=== PATIENT | female | born 1985 ===

== ENCOUNTER 2017-07-21 01:29 | Emergency (ER) | payer OTHER ==
[2017-07-21 02:06] VITALS: BP 98/64; PULSE 80; RESP 18; TEMP 98.6; O2SAT 100
--- NOTE | 2017-07-21 03:02 | ED PDOC ---
HPI: Back Time Seen by Provider: 07/21/17 02:14 Chief Complaint (Nursing): Back Pain Chief Complaint (Provider): back pain, ankle pain History Per: Patient History/Exam Limitations: no limitations Onset/Duration Of Symptoms: Days, Waxing/Waning Current Symptoms Are (Timing): Still Present Quality Of Discomfort: "Pain" Exacerbating Factor(s): Turning, Movement, Sitting Additional History Per: Patient Additional Complaint(s): 32 y/o female presents with intermittent low back pain, right leg pain x years, worsening the last 2 weeks. Patient states she had 2 surgeries for ruptured tendon in 2013; since then the area gets swollen and painful often. Patient also notes since then to have intermittent right and left-sided low back pain, with occasional radiation down right leg. Patient admits to not bearing weight properly on right foot due to pain and is unsure if back problems are a result of that. Patient notes pain to be worse with weight bearing, turning, sitting; has had improvement with muscle relaxants in past but wants to find out why she keeps getting this pain. Denies new injury, fever, numbness/weakness lower extremities, limitation of movement, bowel/bladder incontinence, urinary symptoms. Past Medical History Reviewed: Historical Data, Nursing Documentation, Vital Signs Vital Signs: Last Vital Signs Temp 98.6 F 07/21/17 01:56 Pulse 80 07/21/17 01:56 Resp 18 07/21/17 01:56 BP 98/64 L 07/21/17 01:56 Pulse Ox 100 07/21/17 01:56 - Medical History PMH: No Chronic Diseases - Surgical History Other surgeries: right ankle surgery. left eye surgery - Family History Family History: States: No Known Family Hx - Home Medications Home Medications: Ambulatory Orders Medication Instructions Recorded Cyclobenzaprine [Cyclobenzaprine 10 mg PO BID PRN #14 tab 07/21/17 HCl] Ibuprofen [Motrin Tab] 1 tab PO Q6 PRN #20 tab 07/21/17 - Allergies Allergies/Adverse Reactions: Allergies Allergy/AdvReac Type Severity Reaction Status Date / Time No Known Allergies Allergy Verified 07/21/17 01:56 Review of Systems ROS Statement: Except As Marked, All Systems Reviewed And Found Negative Musculoskeletal: Positive for: Back Pain, Leg Pain, Foot Pain Physical Exam - Reviewed Nursing Documentation Reviewed: Yes Vital Signs Reviewed: Yes - Physical Exam Appears: Positive for: Well, Non-toxic, No Acute Distress Head Exam: Positive for: ATRAUMATIC, NORMAL INSPECTION, NORMOCEPHALIC Skin: Positive for: Normal Color Eye Exam: Positive for: Normal appearance Pulses-Dorsalis Pedis (L): 2+ Pulses-Dorsalis Pedis (R): 2+ Pulses-Radial (L): 2+ Pulses-Radial (R): 2+ Back: Positive for: Normal Inspection, Muscle Spasm (pinpoint tenderness superior left and right iliac crest; no swelling, ecchymosis, deformity noted). Negative for: L CVA Tenderness, R CVA Tenderness, Vertebral Tenderness, Decreased ROM Extremity: Positive for: Normal ROM, Capillary Refill, Swelling (healed surgical incision anterior right ankle with surrounding swelling, tenderness. No erythema, temp change noted. ). Negative for: Pedal Edema, Deformity Neurologic/Psych: Positive for: Alert, Oriented. Negative for: Motor/Sensory Deficits - ECG O2 Sat by Pulse Oximetry: 100 - Other Rad xray lspine X-Ray: Viewed By Dc X-Ray Interpretation: no acute findings xray pelvis X-Ray: Viewed By Dc X-Ray Interpretation: no acute findings xray right ankle X-Ray: Viewed By Dc X-Ray Interpretation: no acute findings; sts - Progress ED Course And Treament: toradol IM, flexeril PO, xray lspine, xray pelvis, xray right ankle On re-eval, patient notes relief of pain. Right ankle wrapped in CHANO compression, surgical shoe given. Advised RICE. Rx ibuprofen, flexeril given. Follow up podiatry for ankle. Follow up PMD Return to ED for worsening/concerning symptoms. Disposition - Clinical Impression Clinical Impression: Back pain, Chronic ankle pain - Patient ED Disposition Is Patient to be Admitted: No Counseled Patient/Family Regarding: Studies Performed, Diagnosis, Need For Followup, Rx Given - Disposition Referrals: Yeny Moffett MD [Primary Care Provider] - Rolo Lopes DPM [Staff Provider] - [facility] [Outside] Disposition: Routine/Home Disposition Time: 04:48 Condition: IMPROVED Prescriptions: Cyclobenzaprine [Cyclobenzaprine HCl] 10 mg PO BID PRN #14 tab PRN Reason: Muscle Spasm Ibuprofen [Motrin Tab] 1 tab PO Q6 PRN #20 tab PRN Reason: Pain, Moderate (4-7) Instructions: Arthralgia (ED), Acute Low Back Pain (ED) Forms: [employer] (Luxem[place]ish)
--- NOTE | 2017-07-21 08:28 | RAD ---
PROCEDURE: Radiographs of the pelvis. HISTORY: back pain COMPARISON: None. FINDINGS: BONES: Pelvic Bones: Pelvic ring appears intact without suspicious lytic or blastic change or fracture evident. Hips: No definite fracture or dislocation. JOINTS: Sacroiliac Joints: Unremarkable. Pubic Symphysis: Unremarkable. OTHER FINDINGS: None. IMPRESSION: Unremarkable radiographs of the pelvis.
--- NOTE | 2017-07-21 08:29 | RAD ---
PROCEDURE: Radiographs of the Lumbar Spine. HISTORY: back pain COMPARISON: No prior. FINDINGS: BONES: Normal alignment. No listhesis. No fracture. DISC SPACES: Unremarkable. OTHER FINDINGS: None. IMPRESSION: Unremarkable radiographs of the lumbar spine.
--- NOTE | 2017-07-21 08:30 | RAD ---
PROCEDURE: Right Ankle Radiographs. HISTORY: anterior ankle pain/swelling , h/o tendon repair COMPARISON: None FINDINGS: BONES: No acute fracture or destructive bony lesion identified. JOINTS: Normal. No osteoarthritis. Ankle mortise maintained. Talar dome intact SOFT TISSUES: Moderate soft tissue edema seen anterior to the tibiotalar joint without emphysematous change or retained radiodense foreign body. OTHER FINDINGS: None. IMPRESSION: Anterior ankle soft tissue edema is seen moderately. No acute fracture subluxation or dislocation identified.
== END 2017-07-21 05:21 | disposition home or self-care (01) ==
LOC: H.ER 01:29
DX: M54.9 Dorsalgia, unspecified (principal); M25.571 Pain in right ankle and joints of right foot; G89.29 Other chronic pain
CPT/HCPCS: 72100; 72170; 73610; 81025; 96372; 99282; J1885